=== PATIENT | female | born 1940 | race Caucasian/White ===

== ENCOUNTER → 2016-08-19 | Outpatient (CLI) | payer MEDICARE, OTHER ==
[2016-08-19 11:09] LABS: ANION GAP 8 (5-19); BLOOD UREA NITROGEN 15 mg/dL (7-20); CALCIUM 10.2 mg/dL (8.4-10.2); CARBON DIOXIDE 30 mmol/L (22-30); CHLORIDE 102 mmol/L (98-107); CHOLESTEROL 131.43 mg/dL (0-200); Direct HDL 60 mg/dL (>40); GLUCOSE 95 mg/dL (75-110); POTASSIUM 4.4 mmol/L (3.6-5.0); SODIUM 139.9 mmol/L (137-145); TRIGLYCERIDES 114 mg/dL (<150)
[2016-08-19 11:20] LABS: DIRECT LDL 48 mg/dL (<100)
== END ==
LOC: OD 09:07
PROVIDERS: ATTEND Internal Medicine Cardiovascular Disease
DX: Z79.899 Other long term (current) drug therapy (principal)
CPT/HCPCS: 36415; 80048; 80061

== ENCOUNTER → 2016-11-04 | Outpatient (CLI) | payer MEDICARE, OTHER ==
[2016-11-04 09:59] LABS: ANION GAP 10 (5-19); BLOOD UREA NITROGEN 14 mg/dL (7-20); CALCIUM 9.5 mg/dL (8.4-10.2); CARBON DIOXIDE 28 mmol/L (22-30); CHLORIDE 103 mmol/L (98-107); CREATININE RESULT 0.72 mg/dL (0.52-1.25); GLUCOSE 92 mg/dL (75-110); POTASSIUM 4.2 mmol/L (3.6-5.0); SODIUM 141.3 mmol/L (137-145)
== END ==
LOC: OD 08:58
PROVIDERS: ATTEND Internal Medicine Cardiovascular Disease
DX: Z79.899 Other long term (current) drug therapy (principal)
CPT/HCPCS: 36415; 80048

== ENCOUNTER 2017-04-08 08:14 | Day surgery (SDC) | payer MEDICARE, OTHER ==
[~2017-04-08 08:14] MED LIST: KETOROLAC TROMETHAMINE 0.45% 4 DROP/0.4 ML DROPERETTE OD PRN
[2017-04-08] MEDS ORDERED: EPINEPHRINE INJ/PF 1 MG/1 ML AMPULE ONE (08:32)
[2017-04-08] MEDS ORDERED: LIDOCAINE 1% INJ-PF (10 MG/ML) 30 ML SDV ONE (08:32)
[2017-04-08] MEDS ORDERED: CHONDR SU A NA/HYALUR INTRAOC KIT (SURGICARE) ONE (08:32)
[2017-04-08] MEDS: TETRACAINE HCL 0.5% OPH SOLN 0.6 ML DROPERETTE OD PRN ×3 (08:40→09:23)
[2017-04-08] MEDS: TROPICAMIDE 1% OPH SOLN 3 ML OD PRN ×3 (08:41→09:05)
[2017-04-08] MEDS: CYCLOPENTOLATE 0.2%/PHENYLEPHRINE 1% OPH SOLN 2 ML OD PRN ×3 (08:41→09:05)
[2017-04-08] MEDS: BESIFLOXACIN HCL 0.6% OPH SUSP 5 ML BOTTLE OD PRN ×4 (08:42→09:41)
[2017-04-08] MEDS ORDERED: MIDAZOLAM 2 MG/2 ML INJ ONE (09:01)
[2017-04-08] MEDS ORDERED: FENTANYL CITRATE INJ/PF 100 MCG/2 ML AMPUL ONE (09:01)
[2017-04-08] MEDS: TOBRAMYCIN SULFATE/DEXAMETH OPH OINTMENT 3.5 GM ONE ×2 (09:41)
== END 2017-04-08 10:30 | disposition home or self-care (01) ==
LOC: SC 08:14
PROVIDERS: ATTEND Ophthalmology
PROC: 08RJ3JZ Replacement of Right Lens with Synthetic Substitute, Percutaneous Approach (ICD-10-PCS; principal; 2017-04-08 09:15)
DX: H25.11 Age-related nuclear cataract, right eye (principal); E11.9 Type 2 diabetes mellitus without complications; I10 Essential (primary) hypertension; E78.00 Pure hypercholesterolemia, unspecified; M19.90 Unspecified osteoarthritis, unspecified site; Z79.899 Other long term (current) drug therapy; Z79.84 Long term (current) use of oral hypoglycemic drugs; Z79.82 Long term (current) use of aspirin; Z87.891 Personal history of nicotine dependence
CPT/HCPCS: 66984; 82962; V2630; J2250; J3490 ×3; A9270; J0171; J3010; 142

== ENCOUNTER → 2017-05-13 | Outpatient (CLI) | payer MEDICARE, OTHER ==
[2017-05-13 10:15] LABS: ANION GAP 13 (5-19); BLOOD UREA NITROGEN 13 mg/dL (7-20); CALCIUM 9.7 mg/dL (8.4-10.2); CARBON DIOXIDE 27 mmol/L (22-30); CHLORIDE 103 mmol/L (98-107); CHOLESTEROL 127.98 mg/dL (0-200); Direct HDL 63 mg/dL (>40); GLUCOSE 96 mg/dL (75-110); POTASSIUM 4.2 mmol/L (3.6-5.0); SODIUM 143.4 mmol/L (137-145); TRIGLYCERIDES 104 mg/dL (<150)
[2017-05-13 10:26] LABS: DIRECT LDL 50 mg/dL (<100)
== END ==
LOC: OD 08:35
PROVIDERS: ATTEND Internal Medicine Cardiovascular Disease
DX: E78.2 Mixed hyperlipidemia (principal); Z79.899 Other long term (current) drug therapy
CPT/HCPCS: 36415; 80048; 80061

== ENCOUNTER → 2017-11-25 | Outpatient (CLI) | payer MEDICARE, OTHER ==
[2017-11-25 12:05] LABS: ALANINE AMINOTRANSFERASE 22 U/L (9-52); ALBUMIN 4.1 g/dL (3.5-5.0); ALKALINE PHOSPHATASE 83 U/L (38-126); ANION GAP 12 (5-19); ASPARTATE AMINO TRANSFERASE 25 U/L (14-36); BILIRUBIN,DIRECT 0.3 mg/dL (0.0-0.4); BILIRUBIN,TOTAL 0.8 mg/dL (0.2-1.3); BLOOD UREA NITROGEN 16 mg/dL (7-20); CALCIUM 9.9 mg/dL (8.4-10.2); CARBON DIOXIDE 28 mmol/L (22-30); CHLORIDE 104 mmol/L (98-107); CHOLESTEROL 121.03 mg/dL (0-200); GLUCOSE 96 mg/dL (75-110); POTASSIUM 4.3 mmol/L (3.6-5.0); SODIUM 143.5 mmol/L (137-145); TOTAL PROTEIN 6.8 g/dL (6.3-8.2); TRIGLYCERIDES 112 mg/dL (<150)
[2017-11-25 12:16] LABS: DIRECT LDL 50 mg/dL (<100)
== END ==
LOC: OD 10:09
PROVIDERS: ATTEND Internal Medicine Cardiovascular Disease
DX: E78.2 Mixed hyperlipidemia (principal); I10 Essential (primary) hypertension; Z79.899 Other long term (current) drug therapy
CPT/HCPCS: 36415; 80048; 80061; 80076

== ENCOUNTER → 2018-05-18 | Outpatient (CLI) | payer MEDICARE, OTHER ==
[2018-05-18 10:27] LABS: ALANINE AMINOTRANSFERASE 18 U/L (9-52); ALBUMIN 3.9 g/dL (3.5-5.0); ALKALINE PHOSPHATASE 77 U/L (38-126); ANION GAP 10 (5-19); ASPARTATE AMINO TRANSFERASE 24 U/L (14-36); BILIRUBIN,DIRECT 0.2 mg/dL (0.0-0.4); BILIRUBIN,TOTAL 0.8 mg/dL (0.2-1.3); BLOOD UREA NITROGEN 15 mg/dL (7-20); CALCIUM 9.7 mg/dL (8.4-10.2); CARBON DIOXIDE 29 mmol/L (22-30); CHLORIDE 104 mmol/L (98-107); CHOLESTEROL 143.98 mg/dL (0-200); GLUCOSE 102 mg/dL (75-110); POTASSIUM 4.3 mmol/L (3.6-5.0); SODIUM 142.7 mmol/L (137-145); TOTAL PROTEIN 6.6 g/dL (6.3-8.2); TRIGLYCERIDES 104 mg/dL (<150)
[2018-05-18 10:37] LABS: DIRECT LDL 82 mg/dL (<100)
== END ==
LOC: OD 09:07
PROVIDERS: ATTEND Internal Medicine Cardiovascular Disease
DX: E78.2 Mixed hyperlipidemia (principal); I10 Essential (primary) hypertension; E11.9 Type 2 diabetes mellitus without complications; Z79.899 Other long term (current) drug therapy
CPT/HCPCS: 36415; 80048; 80061; 80076; 83036

== ENCOUNTER → 2018-07-30 | Outpatient (CLI) | payer MEDICARE, OTHER ==
[2018-07-30 10:59] LABS: HEMOGLOBIN 12.5 g/dL (12.0-15.5); MEAN CORPUSCULAR HEMOGLOBIN 30.7 pg (27.0-33.4); MEAN CORPUSCULAR HGB CONC 34.5 g/dL (32.0-36.0); MEAN CORPUSCULAR VOLUME 89 fl (80-97); PLATELET COUNT 242 10^3/uL (150-450); RED BLOOD COUNT 4.06 10^6/uL (3.72-5.28); RED CELL DISTRIBUTION WIDTH 13.5 % (11.5-14.0); WHITE BLOOD COUNT 5.3 10^3/uL (4.0-10.5)
[2018-07-30 11:18] LABS: ALANINE AMINOTRANSFERASE 21 U/L (9-52); ALBUMIN 4.5 g/dL (3.5-5.0); ALKALINE PHOSPHATASE 83 U/L (38-126); ANION GAP 10 (5-19); ASPARTATE AMINO TRANSFERASE 25 U/L (14-36); BILIRUBIN,DIRECT 0.2 mg/dL (0.0-0.4); BILIRUBIN,TOTAL 0.7 mg/dL (0.2-1.3); BLOOD UREA NITROGEN 17 mg/dL (7-20); CALCIUM 9.7 mg/dL (8.4-10.2); CARBON DIOXIDE 28 mmol/L (22-30); CHLORIDE 103 mmol/L (98-107); CHOLESTEROL 116.64 mg/dL (0-200); GLUCOSE 94 mg/dL (75-110); POTASSIUM 4.7 mmol/L (3.6-5.0); SODIUM 141.2 mmol/L (137-145); TOTAL PROTEIN 6.9 g/dL (6.3-8.2); TRIGLYCERIDES 99 mg/dL (<150)
[2018-07-30 11:29] LABS: DIRECT LDL 52 mg/dL (<100)
== END ==
LOC: OD 10:08
PROVIDERS: ATTEND Internal Medicine Cardiovascular Disease
DX: E78.2 Mixed hyperlipidemia (principal); I10 Essential (primary) hypertension; Z79.899 Other long term (current) drug therapy
CPT/HCPCS: 36415; 80048; 80061; 80076; 85027

== ENCOUNTER → 2019-07-01 | Outpatient (CLI) | payer MEDICARE, OTHER ==
[2019-07-01 09:29] LABS: HEMATOCRIT 36.3 % (36.0-47.0); HEMOGLOBIN 12.4 g/dL (12.0-15.5); MEAN CORPUSCULAR HEMOGLOBIN 30.6 pg (27.0-33.4); MEAN CORPUSCULAR HGB CONC 34.3 g/dL (32.0-36.0); MEAN CORPUSCULAR VOLUME 89 fl (80-97); PLATELET COUNT 233 10^3/uL (150-450); RED BLOOD COUNT 4.06 10^6/uL (3.72-5.28); RED CELL DISTRIBUTION WIDTH 13.9 % (11.5-14.0); WHITE BLOOD COUNT 4.8 10^3/uL (4.0-10.5)
[2019-07-01 09:52] LABS: ALBUMIN 4.1 g/dL (3.5-5.0); ALKALINE PHOSPHATASE 93 U/L (38-126); ANION GAP 8 (5-19); ASPARTATE AMINO TRANSFERASE 29 U/L (14-36); BILIRUBIN,DIRECT 0.2 mg/dL (0.0-0.4); BILIRUBIN,TOTAL 0.7 mg/dL (0.2-1.3); BLOOD UREA NITROGEN 16 mg/dL (7-20); CALCIUM 9.6 mg/dL (8.4-10.2); CARBON DIOXIDE 28 mmol/L (22-30); CHLORIDE 103 mmol/L (98-107); CHOLESTEROL 131.08 mg/dL (0-200); GLUCOSE 91 mg/dL (75-110); POTASSIUM 4.6 mmol/L (3.6-5.0); TRIGLYCERIDES 81 mg/dL (<150)
[2019-07-01 10:03] LABS: DIRECT LDL 59 mg/dL (<100)
== END ==
LOC: OD 08:35
PROVIDERS: ATTEND Physician Assistant
DX: E78.2 Mixed hyperlipidemia (principal); I10 Essential (primary) hypertension; Z79.899 Other long term (current) drug therapy
CPT/HCPCS: 36415; 80048; 80061; 80076; 85027

== ENCOUNTER → 2019-09-27 | Outpatient (CLI) | payer MEDICARE, OTHER ==
[2019-09-27 10:22] LABS: ALBUMIN 4.2 g/dL (3.5-5.0); ALKALINE PHOSPHATASE 91 U/L (38-126); ANION GAP 8 (5-19); ASPARTATE AMINO TRANSFERASE 26 U/L (14-36); BILIRUBIN,TOTAL 0.9 mg/dL (0.2-1.3); BLOOD UREA NITROGEN 12 mg/dL (7-20); CALCIUM 9.8 mg/dL (8.4-10.2); CARBON DIOXIDE 30 mmol/L (22-30); CHLORIDE 100 mmol/L (98-107); GLUCOSE 98 mg/dL (75-110); POTASSIUM 5.2 mmol/L (3.6-5.0); TOTAL PROTEIN 6.8 g/dL (6.3-8.2); TRIGLYCERIDES 115 mg/dL (<150)
[2019-09-27 10:33] LABS: DIRECT LDL 47 mg/dL (<100)
== END ==
LOC: OD 09:28
PROVIDERS: ATTEND Physician Assistant
DX: E78.2 Mixed hyperlipidemia (principal); I10 Essential (primary) hypertension; Z79.899 Other long term (current) drug therapy
CPT/HCPCS: 36415; 80048; 80061; 80076

== ENCOUNTER → 2020-05-04 | Outpatient (CLI) | payer MEDICARE, OTHER ==
--- NOTE | 2020-05-07 13:48 | Pulmonary Function Test ---
Pulmonary Function Test Date of Procedure:: 05/04/20 INDICATION:: Dyspnea Referring Provider: Gama Saenz Functional Skills Tutor: Jose Chatman [employer], [employer] - Report Spirometry: Spirometry: pre-FVC: 1.59 L 86% 66% post-FVC: 1.92 L 80% pre-FEV:1 1.05 L 58% post-FEV1: 1.29 L 72% pre-FEV1/FVC %: 66 post-FEV1/FVC%: 67 predicted: 74 [id number]%: 0.57 L 43% [id number]%: 0.74 L 55% Impression: Mild obstructive ventilatory defect. Good response to bronchodilator therapy.
== END ==
LOC: RT 11:00
PROVIDERS: ATTEND Student in an Organized Health Care Education/Training Program
DX: R06.02 Shortness of breath (principal); I10 Essential (primary) hypertension; E11.9 Type 2 diabetes mellitus without complications; Z79.899 Other long term (current) drug therapy; Z79.84 Long term (current) use of oral hypoglycemic drugs; Z79.82 Long term (current) use of aspirin
CPT/HCPCS: 94060

== ENCOUNTER → 2020-06-07 | Outpatient (CLI) | payer MEDICARE, OTHER ==
[2020-06-07 09:52] LABS: HEMATOCRIT 36.2 % (36.0-47.0); HEMOGLOBIN 12.2 g/dL (12.0-15.5); MEAN CORPUSCULAR HEMOGLOBIN 30.5 pg (27.0-33.4); MEAN CORPUSCULAR HGB CONC 33.6 g/dL (32.0-36.0); MEAN CORPUSCULAR VOLUME 91 fl (80-97); PLATELET COUNT 250 10^3/uL (150-450); RED BLOOD COUNT 3.99 10^6/uL (3.72-5.28); RED CELL DISTRIBUTION WIDTH 13.3 % (11.5-14.0); WHITE BLOOD COUNT 5.3 10^3/uL (4.0-10.5)
[2020-06-07 10:12] LABS: ALBUMIN 4.2 g/dL (3.5-5.0); ALKALINE PHOSPHATASE 100 U/L (38-126); ANION GAP 8 (5-19); ASPARTATE AMINO TRANSFERASE 32 U/L (14-36); BILIRUBIN,DIRECT 0.1 mg/dL (0.0-0.4); BILIRUBIN,TOTAL 0.9 mg/dL (0.2-1.3); BLOOD UREA NITROGEN 16 mg/dL (7-20); CALCIUM 9.5 mg/dL (8.4-10.2); CARBON DIOXIDE 28 mmol/L (22-30); CHLORIDE 101 mmol/L (98-107); CHOLESTEROL 140.65 mg/dL (0-200); GLUCOSE 114 mg/dL (75-110); POTASSIUM 4.3 mmol/L (3.6-5.0); TRIGLYCERIDES 113 mg/dL (<150)
[2020-06-07 10:23] LABS: DIRECT LDL 57 mg/dL (<100)
== END ==
LOC: OD 09:03
PROVIDERS: ATTEND Physician Assistant
DX: E78.2 Mixed hyperlipidemia (principal); I10 Essential (primary) hypertension; R06.00 Dyspnea, unspecified; Z79.899 Other long term (current) drug therapy
CPT/HCPCS: 36415; 80048; 80061; 80076; 83880; 85027